=== PATIENT | female | born 1960 | race Caucasian/White ===

== ENCOUNTER 2020-02-16 04:07 | Emergency (ER) | payer OTHER ==
[~2020-02-16] VITALS: Ht 152.4 cm; Wt 66.7 kg
[2020-02-16] MEDS ORDERED: KETOROLAC TROMETHAMINE 30 MG/ML VIAL IV STA (04:39)
[2020-02-16] MEDS ORDERED: ONDANSETRON HCL INJ 2MG/ML 2ML 2 MG/ML VIAL IV STA (04:39)
[2020-02-16] MEDS ORDERED: ONDANSETRON HCL INJ 2MG/ML 2ML 2 MG/ML VIAL ONE (04:40)
[2020-02-16] MEDS ORDERED: KETOROLAC TROMETHAMINE 30 MG/ML VIAL ONE (04:40)
[2020-02-16] MEDS ORDERED: SODIUM CHLORIDE 0.9% 1000ML 1,000 ML ONE (04:41)
[2020-02-16] MEDS ORDERED: SODIUM CHLORIDE 0.9% 1000ML 1,000 ML IV SCH (04:45)
[2020-02-16] MEDS ORDERED: ONDANSETRON HCL INJ 2MG/ML 2ML 2 MG/ML VIAL IV PRN (05:00)
[2020-02-16] MEDS ORDERED: MORPHINE SULFATE 2 MG/ML SYR 1ML IV PRN (05:00)
--- NOTE | 2020-02-16 05:22 | Diagnostic Imaging Report ---
EXAM: CT Abdomen and Pelvis WITHOUT contrast INDICATION: ^rt flank pain ^20200216 ^0500 COMPARISON: None. TECHNIQUE: Abdomen and pelvis were scanned utilizing a multidetector helical scanner from the lung base to the pubic symphysis without administration of IV contrast. Absence of intravenous contrast decreases sensitivity for detection of focal lesions and vascular pathology. Coronal and sagittal reformations were obtained. Routine protocol was performed. IV CONTRAST: None ORAL CONTRAST: None COMPLICATIONS: None RADIATION DOSE: Total DLP: 588.13 mGy*cm Estimated effective dose: (DLP x 0.015 x size factor) mSv CTDIvol has been reviewed. It is below the limits set by the Radiation Protocol Committee (RPC). FINDINGS: LINES and TUBES: None. LOWER THORAX: 2 mm lingular and 3 mm left lower lobe nodules. HEPATOBILIARY: Unenhanced liver is unremarkable. No biliary ductal dilation. GALLBLADDER: No radio-opaque stones or sludge. No wall thickening. SPLEEN: No splenomegaly. PANCREAS: No focal masses or ductal dilatation. ADRENALS: No adrenal nodules KIDNEYS/URETERS: 6 mm proximal right ureteral calculus with mild right hydronephrosis and perinephric fat stranding. No left hydronephrosis or renal stone. GI TRACT: No abnormal distention, wall thickening, or evidence of bowel obstruction. Appendix is normal. Small hiatal hernia. PELVIC ORGANS/BLADDER: Bladder is collapsed. Retroverted uterus. LYMPH NODES: No lymphadenopathy. VESSELS: Unremarkable. PERITONEUM / RETROPERITONEUM: No free air or fluid. BONES: Unremarkable. SOFT TISSUES: Unremarkable. IMPRESSION: 1. 6 mm obstructive proximal right ureteral calculus with mild right hydronephrosis and perinephric fat stranding. 2. Nonspecific tiny left lower lung field nodules. Without risk factors, no follow-up is necessary. With risk factors, follow-up with low-dose chest CT in one year is optional. Signed by: Dr. Sonu Lion MD on 02/16/2020 5:19 AM
[2020-02-16] MEDS ORDERED: TYLENOL # 31 EA PO (05:41)
[2020-02-16] MEDS ORDERED: ZOFRAN4 MG PO (05:42)
--- NOTE | 2020-02-16 06:04 | Emergency Department Note ---
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 Had single episode of hematuria last night prior to bed time. +N/V, no diarrhea. No fever, no chills. No sick contacts. 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 Has baseline bradycardia. 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) Duration (how long): hour(s) Timing of current episode: constant (constant with intermittant "waves" of sever pain) Chronicity: new Context: Denies recent illness, Denies recent travel, Denies trauma/injury Relieving factors: none Exacerbating factors: none Associated symptoms: Reports diaphoresis, Reports loss of appetite, Reports nausea/vomiting; Denies confusion, Denies chest pain, Denies cough, Denies fever/chills, Denies headaches, Denies malaise, Denies rash, Denies shortness of breath, Denies syncope, Denies weakness Past Medical/Family History Physician Review I have reviewed the patient's past medical and family history. Any updates have been documented here. Past Medical History Recent Fever: No Clinical Suspicion of Infectio: No New/Unexplained Change in Ment: No Past Medical History: Hypothyroidism Past Surgical History: None Social History Smoking Cessation: Never Smoker Counseling Performed: No Alcohol Use: Occasional Any Illegal Drug Use: No Physically hurt or threatened: No Other Any Pre-Existing Lines (PICC,: No Review of Systems Review of Systems Constitutional: Denies chills, Denies fever EENTM: Reports no symptoms Cardiovascular: Reports no symptoms Respiratory: Reports no symptoms Gastrointestinal: Reports as per HPI Genitourinary: Reports as per HPI Musculoskeletal: Reports no symptoms Integumentary: Reports no symptoms Neurological: Reports no symptoms Psychological: Reports no symptoms Endocrine: Reports no symptoms Hematological/Lymphatic: Reports no symptoms Physical Exam Related Data Allergies: Coded Allergies: No Known Drug Allergies (Verified Allergy, Unknown, 11/20/09) Triage Vital Signs Vital Signs Date Time Temp Pulse Resp B/P (MAP) Pulse Ox O2 Delivery O2 Flow Rate FiO2 02/16/20 04:25 97.8 48 17 142/81 100 Physical Exam CONSTITUTIONAL Constitutional: Present well-developed, Present well-nourished HENT HENT: Present normocephalic, Present atraumatic, Present mucosae dry HENT L/R: Present left ext ear normal, Present right ext ear normal EYES Eyes: Reports PERRL, Reports conjunctivae normal NECK Neck: Present ROM normal PULMONARY Pulmonary: Present effort normal, Present breath sounds normal CARDIOVASCULAR Cardiovascular: Present regular rhythm, Present heart sounds normal, Present capillary refill normal, Present normal rate GASTROINTESTINAL Abdominal: Present soft, Present nontender, Present bowel sounds normal; Absent tender, Absent guarding, Absent mass, Absent rebound, Absent left CVA tenderness, Absent right CVA tenderness GENITOURINARY SKIN Skin: Present warm, Present dry MUSCULOSKELETAL Musculoskeletal: Present ROM normal NEUROLOGICAL Neurological: Present alert, Present oriented x 3, Present no gross motor or sensory deficits PSYCHOLOGICAL Psychological: Present mood/affect normal, Present judgement normal Results Laboratory Laboratory comments WBC 9.1, HGB 13.1, HCT 39.9, PLT 250. K3.3, CL 109, Glu 126, otherwise negative Imaging Imaging Comments EXAM: CT Abdomen and Pelvis WITHOUT contrast INDICATION: ^rt flank pain ^20200216 ^0500 COMPARISON: None. TECHNIQUE: Abdomen and pelvis were scanned utilizing a multidetector helical scanner from the lung base to the pubic symphysis without administration of IV contrast. Absence of intravenous contrast decreases sensitivity for detection of focal lesions and vascular pathology. Coronal and sagittal reformations were obtained. Routine protocol was performed. IV CONTRAST: None ORAL CONTRAST: None COMPLICATIONS: None RADIATION DOSE: Total DLP: 588.13 mGy*cm Estimated effective dose: (DLP x 0.015 x size factor) mSv CTDIvol has been reviewed. It is below the limits set by the Radiation Protocol Committee (RPC). FINDINGS: LINES and TUBES: None. LOWER THORAX: 2 mm lingular and 3 mm left lower lobe nodules. HEPATOBILIARY: Unenhanced liver is unremarkable. No biliary ductal dilation. GALLBLADDER: No radio-opaque stones or sludge. No wall thickening. SPLEEN: No splenomegaly. PANCREAS: No focal masses or ductal dilatation. ADRENALS: No adrenal nodules KIDNEYS/URETERS: 6 mm proximal right ureteral calculus with mild right hydronephrosis and perinephric fat stranding. No left hydronephrosis or renal stone. GI TRACT: No abnormal distention, wall thickening, or evidence of bowel obstruction. Appendix is normal. Small hiatal hernia. PELVIC ORGANS/BLADDER: Bladder is collapsed. Retroverted uterus. LYMPH NODES: No lymphadenopathy. VESSELS: Unremarkable. PERITONEUM / RETROPERITONEUM: No free air or fluid. BONES: Unremarkable. SOFT TISSUES: Unremarkable. IMPRESSION: 1. 6 mm obstructive proximal right ureteral calculus with mild right hydronephrosis and perinephric fat stranding. 2. Nonspecific tiny left lower lung field nodules. Without risk factors, no follow-up is necessary. With risk factors, follow-up with low-dose chest CT in one year is optional. Signed by: Dr. Sonu Lion MD on 02/16/2020 5:19 AM Assessment & Plan Medical Decision Making MDM Suspected KS due to hematuria, severe flank pain, N/V. CT confirmed KS. Reassessment Reassessment 4:45 - initial pain 8/10. Few min s/p toradol and zofran 5/10. 05:50 pain & nausea controlled. Assessment & Plan Final Impression: (1) Ureteral calculus, right (2) Ureter colic Depart Disposition: HOME, SELF-CARE Last Vital Signs Date Time Temp Pulse Resp B/P (MAP) Pulse Ox O2 Delivery O2 Flow Rate FiO2 02/16/20 04:25 97.8 48 17 142/81 100 Home Meds Active Scripts Ondansetron Hcl* (ZOFRAN*) 4 Mg Tablet, 4 MG PO Q6HR PRN for NAUSEA AND VOMITING, #14 Prov:CARON SELBY MD 02/16/20 Acetaminophen/Codeine* (TYLENOL # 3*) 1 Ea Tab, 1-2 TAB PO Q6H PRN for SEVERE PAIN (7-10), #20 Prov:CARON SELBY MD 02/16/20 Medications in the ED Ketorolac Tromethamine 30 mg STK-MED ONCE .ROUTE ; Start 02/16/20 at 04:40; Stop 02/16/20 at 04:39; Status DC Ondansetron HCl 4 mg STK-MED ONCE .ROUTE ; Start 02/16/20 at 04:40; Stop 02/16/20 at 04:39; Status DC Sodium Chloride 1,000 ml @ ud STK-MED ONCE .ROUTE ; Start 02/16/20 at 04:41; Stop 02/16/20 at 04:39; Status DC Ketorolac Tromethamine 30 mg ONCE STAT IV Last administered on 02/16/20at 04:42; Admin Dose 30 MG; Start 02/16/20 at 04:39; Stop 02/16/20 at 04:40; Status UNV Ondansetron HCl 4 mg NOW STAT IV Last administered on 02/16/20at 04:40; Admin Dose 4 MG; Start 02/16/20 at 04:39; Stop 02/16/20 at 04:40; Status UNV Sodium Chloride 1,000 ml @ 0 mls/hr Q0M IV Last administered on 02/16/20at 04:40; Admin Dose 999 MLS/HR; Start 02/16/20 at 04:45; Stop 03/17/20 at 04:44; Status UNV CARON SELBY MD Feb 16, 2020 05:03
--- OUTSIDE RECORDS SUMMARY | 2020-02-16 06:38 | XMS REPORT | Continuity of Care Document ---
Author Author [facility] t Organization [facility] Address [address] [place] [address] [address]. 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 Allergies, Adverse Reactions, Alerts This patient has no known allergies or adverse reactions. Medications This patient has no known medications. Procedures This patient has no known procedures. Results Test Description Test Time Test Comments Results Result Comments Source CT ABD/PEL WO CONTRAST-HOPD 2020-02-16 05:12:00 [place] [address] Patient Name: EMMA BURTON MR #: [id number] : 1960 Age/Sex: 59/F Req #: [id number] Adm Physician: Ordered by: CARON SELBY MD Report #: [id number] [facility] Room/Bed: Procedure: HOPD/CT ABD/PEL WO CONTRAST-HOPD Exam Date: 02/16/20 Exam Time: 0500 REPORT STATUS: Signed EXAM: CT Abdomen and Pelvis WITHOUT contrast INDICATION: rt flank pain 20200216 COMPARISON: None. TECHNIQUE: Abdomen and pelvis were scanned utilizing a multidetector helical scanner from the lung base to the pubic symphysis without administration of IV contrast. Absence of intravenous contrast decreases sensitivity for detection of focal lesions and vascular pathology. Coronal and sagittal reformations were obtained. Routine protocol was performed. IV CONTRAST: None ORAL CONTRAST: None COMPLICATIONS: None RADIATION DOSE: Total DLP: 588.13 mGy*cm Estimated effective dose: (DLP x 0.015 x size factor) mSv CTDIvol has been reviewed. It is below the limits set by the Radiation Protocol Committee (RPC). FINDINGS: LINES and TUBES: None. LOWER THORAX: 2 mm lingular and 3 mm left lower lobe nodules. HEPATOBILIARY: Unenhanced liver is unremarkable. No biliary ductal dilation. GALLBLADDER: No radio-opaque stones or sludge. No wall thickening. SPLEEN: No splenomegaly. PANCREAS: No focal masses or ductal dilatation. ADRENALS: No adrenal nodules KIDNEYS/URETERS: 6 mm proximal right ureteral calculus with m ild right hydronephrosis and perinephric fat stranding. No left hydronephrosis or renal stone. GI TRACT: No abnormal distention, wall thickening, or evidence of bowel obstruction. Appendix is normal. Small hiatal hernia. PELVIC ORGANS/BLADDER: Bladder is collapsed. Retroverted uterus. LYMPH NODES: No lymphadenopathy. VESSELS: Unremarkable. PERITONEUM / RETROPERITONEUM: No free air or fluid. BONES: Unremarkable. SOFT TISSUES: Unremarkable. IMPRESSION: 1. 6 mm obstructive proximal right ureteral calculus with mild right hydronephrosis and perinephric fat stranding. 2. Nonspecific tiny left lower lung field nodules. Without risk factors, no follow-up is necessary. With risk factors, follow-up with low-dose chest CT in one year is optional. Signed by: Dr. Sonu Barriga MD on 02/16/2020 5:19 AM Dictated By: SONU BARRIGA MD 8 Transcribed By: JANESSA on 02/16/20518 COPY TO: CARON SELBY MD
== END 2020-02-16 05:48 | disposition home or self-care (01) ==
LOC: FSED 04:40
DX: M54.5 Low back pain (principal); R10.31 Right lower quadrant pain; N20.1 Calculus of ureter; R31.9 Hematuria, unspecified; E03.9 Hypothyroidism, unspecified; R91.8 Other nonspecific abnormal finding of lung field
CPT/HCPCS: 74176; 80053; 81003; 85025; 96374; 96376; 99283; J1885; J2405; J7030